=== PATIENT | female | born 1940 | race Caucasian/White ===

== ENCOUNTER 2021-11-13 08:52 | Outpatient (CLI) | payer MEDICARE, BC, SELFPAY ==
[2021-11-13 09:39] LABS: Hematocrit 43.7 % (37.0-47.0); Hemoglobin 14.2 g/dL (12.0-15.0); Mean Corpuscular HGB Conc 32.5 g/dl (32-36); Mean Corpuscular Hemoglobin 29.2 pg (26-34); Mean Corpuscular Volume 89.7 fl (80-100); Mean Platelet Volume 10.3 fl (7.4-10.4); Platelet Count Result 245 k/mm3 (150-375); Red Blood Count 4.87 M/mm3 (4.2-5.4); Red Cell Distribution Width 12.4 % (11.5-14.5); White Blood Count 6.9 K/mm3 (4.5-10.0)
[2021-11-13 09:49] LABS: Cholesterol 146 mg/dL (0-200); HDL Direct 44 mg/dL; Magnesium 1.9 mg/dL (1.6-2.3); Triglycerides 95 mg/dL (<150)
[2021-11-13 09:59] LABS: LDL Cholesterol Direct 73 mg/dL
== END 2021-11-13 08:53 | disposition home or self-care (01) ==
PROVIDERS: PCP Internal Medicine; Visit Provider Specialist
DX: I25.10 Atherosclerotic heart disease of native coronary artery without angina pectoris (principal); I10 Essential (primary) hypertension; I49.3 Ventricular premature depolarization
CPT/HCPCS: 36415; 80061; 83735; 85027